=== PATIENT | female | born 1995 | race Caucasian/White ===

== ENCOUNTER 2024-06-08 15:19 | Emergency (ER) | payer OTHER ==
[~2024-06-08] VITALS: Ht 170.2 cm; Wt 54.5 kg
[2024-06-08 15:32] VITALS: BP 108/75; TEMP 98.2
[2024-06-08] MEDS ORDERED: CEPHALEXIN500 M1 PO (16:00)
[2024-06-08 16:19] VITALS: PULSE 81
== END 2024-06-08 16:20 | disposition home or self-care (01) ==
LOC: COL.ER 15:19
DX: L03.012 Cellulitis of left finger (principal)